=== PATIENT | female | born 1930 | race Caucasian/White ===

== ENCOUNTER 2016-08-20 14:06 | Emergency (ER) | payer MEDICARE, BC ==
[~2016-08-20 14:06] MED LIST: ARICEPT5 MG PO; CRESTOR40 MG PO; EFFEXOR37.5 MG PO; HUMALOG 30100 UNITS/ SC; KEFLEX500 MG PO; NAMENDA10 MG PO; SYNTHROID100 MCG PO; TRAVOPROST 0.02.5 ML EACH EYE; VITAMIN B-12500 MC1 PO; VITAMIN D31000 UNI2 PO
[2016-08-20 14:53] LABS: APPEARANCE CLOUDY (CLEAR); BILIRUBIN NEGATIVE (NEGATIVE); COLOR YELLOW (YELLOW); GLUCOSE NEGATIVE (NEGATIVE); KETONE NEGATIVE (NEGATIVE); LEUKOCYTE ESTERASE 2+ (NEGATIVE); NITRITE NEGATIVE (NEGATIVE); PROTEIN 3+ mg/dL (NEGATIVE); SPECIFIC GRAVITY 1.005 (1.005-1.020); UROBILINOGEN NORMAL (NORMAL)
[2016-08-20 14:55] LABS: BACTERIA MANY /hpf (NONE SEEN); EPITHELIAL CELLS 0-5 /hpf (0-5); WHITE CELLS - URINE 25-50 /hpf (0-5)
== END 2016-08-20 15:30 | disposition home or self-care (01) ==
LOC: D.ER 14:06
PROVIDERS: Emergency Medicine
DX: N39.0 Urinary tract infection, site not specified (principal); F03.90 Unspecified dementia, unspecified severity, without behavioral disturbance, psychotic disturbance, mood disturbance, and anxiety; E03.9 Hypothyroidism, unspecified